=== PATIENT | female | born 1945 | race Caucasian/White ===

== ENCOUNTER 2018-01-21 11:21 | Emergency (ER) | payer MEDICARE ==
[2018-01-21 11:54] LABS: BASO # 0.1 x10^3/uL (0.0-0.2); BASO % 1 % (0-3); EOS % 0 % (0-3); HEMOGLOBIN 14.7 g/dL (12.0-15.5); LYMPH % 16 % (24-48); MEAN CORPUSCULAR HEMOGLOBIN 30 pg (25-35); MEAN CORPUSCULAR HGB CONC 34 g/dL (31-37); MEAN CORPUSCULAR VOLUME 89 fL (79-100); MONO # 0.6 x10^3/uL (0.0-1.1); MONO % 4 % (0-9); NEUT # 10.3 x10^3uL (1.8-7.7); NEUT % 79 % (31-73); PLATELET COUNT 320 x10^3/uL (140-400); RED BLOOD COUNT 4.84 x10^6/uL (3.50-5.40); RED CELL DISTRIBUTION WIDTH 12.6 % (11.5-14.5)
[2018-01-21] MEDS ORDERED: ONDANSETRON PF 4 MG/2 ML VIAL. IV ONE ×2 (12:00→13:15)
[2018-01-21 12:13] LABS: CALCIUM 9.4 mg/dL (8.5-10.1); CREATININE 1.1 mg/dL (0.6-1.0); GFR 49.1; POTASSIUM 3.2 mmol/L (3.5-5.1); TOTAL BILIRUBIN 0.8 mg/dL (0.2-1.0)
--- NOTE | 2018-01-21 12:23 | PHYS DOC ---
Past History Past Medical History: Other Past Surgical History: Cholecystectomy, Alcohol Use: Occasionally Drug Use: None Adult General Chief Complaint Chief Complaint: SHORTNESS OF BREATH [facility] HPI 72-year-old female presents with one-week history of increasing shortness of breath. Patient has had some increased shortness breath with exertion for a few months, status is much worse last week. She is to get short of breath after walking across a parking lot while shopping. She now feels breath just walking from one room to the next. If she stops, it takes up to 5 minutes for her to feel normal again. She has some central chest discomfort with shortness of breath. She also admits to mild diaphoresis with exertion. She denies any increased swelling or unusual weight gain. She has never had a stress test or cardiac catheterization. She was never smoker and has no COPD history. Both of her parents had CHF diagnoses but she does not. She denies fever or chills. Review of Systems Review of Systems Constitutional: Denies fever or chills [] Eyes: Denies change in visual acuity, redness, or eye pain [] HENT: Denies nasal congestion or sore throat [] Respiratory: chronic cough. Shortness of breath [] Cardiovascular: No additional information not addressed in HPI [] GI: Denies abdominal pain, nausea, vomiting, bloody stools or diarrhea [] : Denies dysuria or hematuria [] Musculoskeletal: Denies back pain or joint pain [] Integument: Denies rash or skin lesions [] Neurologic: Denies headache, focal weakness or sensory changes [] Endocrine: Denies polyuria or polydipsia [] All other systems were reviewed and found to be within normal limits, except as documented in this note. Current Medications Current Medications Current Medications Medications (Trade) Dose Ordered Sig/[facility] Start Time Stop Time Status Last Admin Dose Admin Ondansetron HCl (Zofran) 4 mg 1X ONCE 01/21/18 12:00 01/21/18 12:08 DC 01/21/18 12:00 4 MG Allergies Allergies Allergies Coded Allergies Type Severity Reaction Last Updated Verified Penicillins Allergy Unknown 01/21/18 Yes Physical Exam Physical Exam Constitutional: Well developed, obese, well nourished, no acute distress, non- toxic appearance. [] HENT: Normocephalic, atraumatic, bilateral external ears normal, oropharynx moist, no oral exudates, nose normal. [] Eyes: PERRLA, EOMI, conjunctiva normal, no discharge. [] Neck: Normal range of motion, no tenderness, supple, no stridor. [] Cardiovascular:Heart rate regular rhythm, systolic murmur 3/6[] Lungs & Thorax: Bilateral breath sounds clear to auscultation [] Abdomen: Bowel sounds normal, soft, no tenderness, no masses, no pulsatile masses. [] Skin: Warm, dry, no erythema, no rash. [] Back: No tenderness, no CVA tenderness. [] Extremities: No tenderness, no cyanosis, no clubbing, ROM intact, no edema. [] Neurologic: Alert and oriented X 3, normal motor function, normal sensory function, no focal deficits noted. [] Psychologic: Affect normal, judgement normal, mood normal. [] Current Patient Data Vital Signs Vital Signs Date Time Temp Pulse Resp B/P (MAP) Pulse Ox O2 Delivery O2 Flow Rate FiO2 01/21/18 11:27 98.1 63 30 97 Room Air Lab Results Laboratory Tests Test 01/21/18 11:40 White Blood Count 13.0 x10^3/uL (4.0-11.0) H Red Blood Count 4.84 x10^6/uL (3.50-5.40) Hemoglobin 14.7 g/dL (12.0-15.5) Hematocrit 43.0 % (36.0-47.0) Mean Corpuscular Volume 89 fL (79-100) Mean Corpuscular Hemoglobin 30 pg (25-35) Mean Corpuscular Hemoglobin Concent 34 g/dL (31-37) Red Cell Distribution Width 12.6 % (11.5-14.5) Platelet Count 320 x10^3/uL (140-400) Neutrophils (%) (Auto) 79 % (31-73) H Lymphocytes (%) (Auto) 16 % (24-48) L Monocytes (%) (Auto) 4 % (0-9) Eosinophils (%) (Auto) 0 % (0-3) Basophils (%) (Auto) 1 % (0-3) Neutrophils # (Auto) 10.3 x10^3uL (1.8-7.7) H Lymphocytes # (Auto) 2.0 x10^3/uL (1.0-4.8) Monocytes # (Auto) 0.6 x10^3/uL (0.0-1.1) Eosinophils # (Auto) 0.0 x10^3/uL (0.0-0.7) Basophils # (Auto) 0.1 x10^3/uL (0.0-0.2) Sodium Level 135 mmol/L (136-145) L Potassium Level 3.2 mmol/L (3.5-5.1) L Chloride Level 99 mmol/L (98-107) Carbon Dioxide Level 19 mmol/L (21-32) L Anion Gap 17 (6-14) H Blood Urea Nitrogen 20 mg/dL (7-20) Creatinine 1.1 mg/dL (0.6-1.0) H Estimated GFR (Cockcroft-Gault) 49.1 BUN/Creatinine Ratio 18 (6-20) Glucose Level 126 mg/dL (70-99) H Calcium Level 9.4 mg/dL (8.5-10.1) Total Bilirubin 0.8 mg/dL (0.2-1.0) Aspartate Amino Transferase (AST) 15 U/L (15-37) Alanine Aminotransferase (ALT) 30 U/L (14-59) Alkaline Phosphatase 90 U/L (46-116) Troponin I Quantitative < 0.017 ng/mL (0-0.055) OL-Ixp-T-Type Natriuretic Peptide 369 pg/mL (0-124) H Total Protein 8.0 g/dL (6.4-8.2) Albumin 4.0 g/dL (3.4-5.0) Albumin/Globulin Ratio 1.0 (1.0-1.7) EKG EKG Sinus rhythm, rate 57, normal axis, flattened P waves, no ST elevations or depressions.[] Radiology/Procedures Radiology/Procedures [] Impressions: PA and lateral chest radiograph. History: Shortness of breath for 4 days. Comparison: None. Findings: Cardiomediastinal silhouette is within normal limits for size. No pneumothorax or pleural effusion is identified. There is increased density and irregular consolidation involving the lingula with roughly a 2.5 cm rounded consolidation component seen, better appreciated on the frontal image. Impression: 1. Irregular consolidation involving the lingula, favored to be pneumonia. Recommend appropriate treatment and follow-up PA and lateral chest radiograph in 6 weeks. Electronically signed by: Scooby Sheridan MD (01/21/2018 1:48 PM) [place] [id number] DICTATED AND SIGNED BY: SCOOBY SHERIDAN MD DATE: 01/21/18 4220 CC: CARLY LARA DO; PCP,DEANDRA Course & Med Decision Making Course & Med Decision Making Pertinent Labs and Imaging studies reviewed. (See chart for details) The patient's labs show a slightly elevated white count. She does appear to have pneumonia in the left lingula. The cultures are ordered. I will treat her with Rocephin and azithromycin. I would like to admit the patient for further treatment. Due to the patient's insurance, it would be to her benefit to transfer to another facility. This is what the patient would like to do. I discussed the case with Dr. Wilson at the [facility] transfer center and he has accepted the patient for transfer to [facility]. [] Dragon Disclaimer Dragon Disclaimer This electronic medical record was generated, in whole or in part, using a voice recognition dictation system. Departure Departure: Referrals: PCP,DEANDRA (PCP) CARLY LARA DO Jan 21, 2018 12:23
--- NOTE | 2018-01-21 12:42 | EKG ---
[address] [address] Test Date: 2018-01-21 Test Time: 12:13:18 Pat Name: POOJA DUVAL Department: Room: Gender: F [employer]: : 1945 Requested By: CARLY LARA Order Number: [id number] Reading MD: Sandeep Harris Measurements Intervals [place] Rate: 57 P: [place]: QRS: -5 QRSD: 88 T: 8 QT: 442 QTc: 433 Interpretive Statements SINUS RHYTHM NONSPECIFIC ST-T WAVE CHANGES. Electronically Signed On 01-22-2018 9:42:31 ALUMINUM POURER by Sandeep Harris
[2018-01-21] MEDS ORDERED: PROCHLORPERAZINE 10 MG/2 ML VIAL. ONE (13:09)
[2018-01-21] MEDS ORDERED: PROCHLORPERAZINE 10 MG/2 ML VIAL. IV ONE (13:30)
--- NOTE | 2018-01-21 13:52 | RAD ---
PA and lateral chest radiograph. History: Shortness of breath for 4 days. Comparison: None. Findings: Cardiomediastinal silhouette is within normal limits for size. No pneumothorax or pleural effusion is identified. There is increased density and irregular consolidation involving the lingula with roughly a 2.5 cm rounded consolidation component seen, better appreciated on the frontal image. Impression: 1. Irregular consolidation involving the lingula, favored to be pneumonia. Recommend appropriate treatment and follow-up PA and lateral chest radiograph in 6 weeks. Electronically signed by: Ismael Sheridan MD (01/21/2018 1:48 PM) [place] [id number]
[2018-01-21] MEDS ORDERED: AZITHROMYCIN 500 MG in IV NORMAL SALINE 250ML 250 ML IV ONE (14:00)
[2018-01-21 14:19] LABS: CLARITY,URINE CLEAR; COLOR,URINE AMBER
[2018-01-21] MEDS ORDERED: IV NORMAL SALINE 100ML 100 ML ONE (14:19)
[2018-01-21] MEDS ORDERED: IV NORMAL SALINE 250ML 250 ML ONE (14:19)
[2018-01-21] MEDS ORDERED: AZITHROMYCIN 500 MG VIAL. IV ONE (14:19)
[2018-01-21 14:20] LABS: BACTERIA,URINE FEW /HPF (0-FEW); BILIRUBIN,URINE NEG (NEG); GLUCOSE,URINE NEG (NEG); NITRITE,URINE NEG (NEG); RBC,URINE 0 /HPF (0-2); SQUAMOUS EPITHELIAL CELL,UR OCC /LPF; UROBILINOGEN,URINE 0.2 mg/dL (0.2 mg/dL); WBC,URINE 0 /HPF (0-4)
[2018-01-21 17:16] VITALS: BP 148/75
== END 2018-01-21 17:20 | disposition short-term general hospital (02) ==
LOC: ER 11:21
DX: R07.89 Other chest pain (principal); R06.02 Shortness of breath; D72.829 Elevated white blood cell count, unspecified; Z88.0 Allergy status to penicillin
CPT/HCPCS: 36415; 71046; 80053; 81001; 83880; 84484; 85025; 87040; 93005; 96365; 96366; 96367; 96375; 99285; J0456; J0696; J0780; J2405; J7050; 96368